=== PATIENT | female | born 1980 | race Caucasian/White ===

== ENCOUNTER → 2019-08-19 20:17 | Observation (INO) ==
[2019-08-19 17:39] LABS: Basophils % 0.2 %; Eosinophils # 0.2 K/mcL (0.0-0.6); Eosinophils % 1.8 %; Hematocrit 33.8 % (35.3-44.9); Immature Granulocytes % 0.5 % (0-4); Lymphocytes # 1.2 K/mcL (0.6-4.6); Lymphocytes % 13.8 %; Mean Corpuscular HGB Conc 32.5 g/dL (31.6-35.5); Mean Corpuscular Hemoglobin 28.6 pg (28.0-33.3); Mean Corpuscular Volume 87.8 fL (83.0-100.0); Mean Platelet Volume 10.2 fL (9.4-12.4); Monocytes # 0.6 K/mcL (0.0-1.3); Monocytes % 6.9 %; Neutrophils # 6.8 K/mcL (1.6-8.9); Platelet Count 179 K/mcL (140-400); Red Blood Count 3.85 M/mcL (3.82-4.97); Red Cell Distribution Width 14.3 % (11.5-14.5); Segmented Neutrophils % 76.8 %; White Blood Count 8.8 K/mcL (4.3-11.1)
[2019-08-19 17:54] LABS: Amphetamine Screen,Urine Negative ng/mL (Cutoff=1000); Barbiturate Screen,Urine Negative ng/mL (Cutoff=200); Benzodiazepines Screen,Urine Negative ng/mL (Cutoff=200); Cannabinoid Screen,Urine Negative ng/mL (Cutoff = 50); Cocaine Screen,Urine Positive ng/mL (Cutoff= 300); Opiate Screen,Urine Negative ng/mL (Cutoff=300); Phencyclidine Screen,Urine Negative ng/mL (Cutoff=25)
[2019-08-19 19:49] LABS: Bilirubin,Urine Negative (Negative); Blood,Urine Negative (Negative); Clarity,Urine Clear (Clear); Color,Urine Colorless (Yellow); Glucose,Urine (UA) Normal (Normal); Ketones,Urine Negative (Negative); Leukocyte Esterase,Urine Negative (Negative); Nitrite,Urine Negative (Negative); Protein,Urine Negative (Neg-Trace); Urobilinogen,Urine Normal (Normal)
[~2019-08-19 20:17] MED LIST: D5% in Lactated Ringers 1,000 ML IVC SCH; Ringers Solution, Lactated 1,000 ML IVC SCH; Ringers Solution, Lactated 1,000 ML ONE
[2019-08-22 16:33] LABS: RPR REACTIVE (Non Reactive)
== END | disposition left against medical advice (07) ==
LOC: 1NENULAB
PROVIDERS: ADMIT Obstetrics & Gynecology; ATTEND Obstetrics & Gynecology

== ENCOUNTER 2019-08-20 12:07 | Inpatient (IN) ==
[2019-08-20 11:10] LABS: Basophils % 0.3 %; Eosinophils # 0.1 K/mcL (0.0-0.6); Eosinophils % 0.6 %; Hematocrit 35.3 % (35.3-44.9); Hemoglobin 11.7 g/dL (11.5-15.4); Immature Granulocytes % 0.4 % (0-4); Lymphocytes # 1.2 K/mcL (0.6-4.6); Lymphocytes % 10.3 %; Mean Corpuscular HGB Conc 33.1 g/dL (31.6-35.5); Mean Corpuscular Hemoglobin 28.8 pg (28.0-33.3); Mean Corpuscular Volume 86.9 fL (83.0-100.0); Mean Platelet Volume 9.6 fL (9.4-12.4); Monocytes # 0.5 K/mcL (0.0-1.3); Monocytes % 4.8 %; Platelet Count 178 K/mcL (140-400); Red Blood Count 4.06 M/mcL (3.82-4.97); Red Cell Distribution Width 14.1 % (11.5-14.5); Segmented Neutrophils % 83.6 %; White Blood Count 11.2 K/mcL (4.3-11.1)
[2019-08-20 11:12] LABS: Neutrophils # 9.4 K/mcL (1.6-8.9)
[~2019-08-20 12:07] MED LIST changes: +*HR* HYDROMORPHONE 2 MG/ML VIAL ONE; +*HR* Oxytocin 10 UNIT/ML VIAL IM ONE; +*HR* Propofol 200 MG/20 ML VIAL IVP ONE; +*HR* Rocuronium Bromide 50 MG/5 ML VIAL ONE; +*HR* Succinylcholine 200 MG/10 ML VIAL IVP ONE; +Acetaminophen IV 1,000 MG/100 ML INFUS..BTL ONE; +CeFAZolin 2,000 MG/50 ML BAG IVPB ONE; -D5% in Lactated Ringers 1,000 ML IVC SCH; +Dexamethasone 4 MG/ML VIAL ONE; +Famotidine 20 MG/2 ML VIAL IVP ONE; +Famotidine 20 MG/2 ML VIAL ONE; +Ketorolac 30 MG/ML VIAL ONE; +Metoclopramide 10 MG/2 ML VIAL IVP ONE; +Metoclopramide 10 MG/2 ML VIAL ONE; +Ondansetron 4 MG/2 ML VIAL ONE; +Oxytocin 20 units/ LR 1000 mL 20 UNIT/1,000 ML BAG IVC ONE; +Ringers Solution, Lactated 1,000 ML IVC ONE
[2019-08-20] MEDS ORDERED: Neostigmine Methylsulfate 3 MG/3 ML SYRINGE ONE (12:08)
[2019-08-20] MEDS ORDERED: Ropivacaine/PF 0.2% 20 ML VIAL ONE (12:27)
[2019-08-20] MEDS ORDERED: *HR* HYDROmorphone PF 0.5 MG/0.5 ML SYRINGE IVP PRN (13:12)
[2019-08-20 13:21] LABS: Amphetamine Screen,Urine Negative ng/mL (Cutoff=1000); Barbiturate Screen,Urine Negative ng/mL (Cutoff=200); Benzodiazepines Screen,Urine Negative ng/mL (Cutoff=200); Cannabinoid Screen,Urine Negative ng/mL (Cutoff = 50); Cocaine Screen,Urine Positive ng/mL (Cutoff= 300); Opiate Screen,Urine Negative ng/mL (Cutoff=300); Phencyclidine Screen,Urine Negative ng/mL (Cutoff=25)
[2019-08-20] MEDS ORDERED: Rho Immune Globulin 1,500 UNIT SYRINGE IM ONE (15:34)
[2019-08-20] MEDS ORDERED: Acetaminophen 325 MG TABLET PO PRN (15:34)
[2019-08-20] MEDS ORDERED: Ringers Solution, Lactated 1,000 ML IVC SCH (15:34)
[2019-08-20] MEDS ORDERED: *HR* HYDROmorphone 20 MG/20 ML PCA IVC PRN (15:34)
[2019-08-20] MEDS ORDERED: Simethicone 80 MG TAB.CHEW PO PRN (15:34)
[2019-08-20] MEDS ORDERED: Ondansetron 4 MG/2 ML VIAL IVP PRN (15:34)
[2019-08-20] MEDS ORDERED: Metoclopramide 10 MG/2 ML VIAL IVP PRN (15:34)
[2019-08-20] MEDS ORDERED: Sennosides 8.6 MG TABLET PO PRN (15:34)
[2019-08-20] MEDS ORDERED: Oxytocin 20 units/ LR 1000 mL 20 UNIT/1,000 ML BAG IVC SCH (15:34)
[2019-08-20] MEDS: Ibuprofen 600 MG TABLET PO PRN (20:36)
[2019-08-20] MEDS: Oxytocin 20 units/ LR 1000 mL 20 UNIT/1,000 ML BAG IVC SCH (21:39)
[2019-08-20] MEDS: *HR* OxyCODONE/APAP 5/325 TABLET PO PRN (21:46)
[2019-08-21] MEDS: Ibuprofen 600 MG TABLET PO PRN ×3 (04:35→19:41)
[2019-08-21] MEDS: *HR* OxyCODONE/APAP 5/325 TABLET PO PRN ×4 (04:36→19:41)
[2019-08-21] MEDS: Oxytocin 20 units/ LR 1000 mL 20 UNIT/1,000 ML BAG IVC SCH (05:40)
[2019-08-21] MEDS: Prenatal Vit/FA 1 EACH TABLET PO SCH (08:18)
[2019-08-21 08:20] LABS: Basophils % 0.2 %; Eosinophils # 0.2 K/mcL (0.0-0.6); Eosinophils % 1.5 %; Hematocrit 33.9 % (35.3-44.9); Hemoglobin 10.6 g/dL (11.5-15.4); Immature Granulocytes % 0.4 % (0-4); Lymphocytes # 1.9 K/mcL (0.6-4.6); Lymphocytes % 15.4 %; Mean Corpuscular HGB Conc 31.3 g/dL (31.6-35.5); Mean Corpuscular Hemoglobin 27.4 pg (28.0-33.3); Mean Corpuscular Volume 87.6 fL (83.0-100.0); Mean Platelet Volume 9.7 fL (9.4-12.4); Monocytes # 0.9 K/mcL (0.0-1.3); Monocytes % 6.9 %; Neutrophils # 9.5 K/mcL (1.6-8.9); Platelet Count 202 K/mcL (140-400); Red Blood Count 3.87 M/mcL (3.82-4.97); Red Cell Distribution Width 14.2 % (11.5-14.5); Segmented Neutrophils % 75.6 %; White Blood Count 12.5 K/mcL (4.3-11.1)
[2019-08-22] MEDS: Ibuprofen 600 MG TABLET PO PRN (04:00)
[2019-08-22] MEDS: *HR* OxyCODONE/APAP 5/325 TABLET PO PRN ×3 (04:01→20:12)
[2019-08-22] MEDS: Prenatal Vit/FA 1 EACH TABLET PO SCH (07:51)
[2019-08-23] MEDS: *HR* OxyCODONE/APAP 5/325 TABLET PO PRN ×2 (02:25→08:14)
[2019-08-23] MEDS: Prenatal Vit/FA 1 EACH TABLET PO SCH (08:11)
[2019-08-23 08:23] VITALS: BP 132/85
== END 2019-08-23 08:35 | disposition home or self-care (01) | DRG 539 ==
LOC: 1NENULAB → 1NENUOBS 14:57
PROVIDERS: ADMIT Student in an Organized Health Care Education/Training Program; ATTEND Student in an Organized Health Care Education/Training Program